=== PATIENT | female | born 1970 ===

== ENCOUNTER 2020-07-11 08:37 | Observation (INO) ==
[2020-07-11] MEDS ORDERED: ASPIRIN 325 MG TABLET PO STA (09:28)
[2020-07-11] MEDS ORDERED: NITROGLYCERIN SL 0.4 MG TABLET SL PRN (09:28)
[2020-07-11 09:38] LABS: Basophils # 0.1 10*3/uL (0.0-0.2); Basophils % 1.3 % (0.0-0.8); Eosinophils # 0.1 10*3/uL (0.0-0.87); Eosinophils % 3.7 % (0.00-10.9); Hematocrit 36.8 VOL% (35.7-47.0); Hemoglobin 11.1 GM/DL (12.0-16.0); Immature Granulocytes % 0.3 %; Immature Granulocytes Absolute 0.01 #; Lymphocytes # 1.3 10*3/uL (1.4-4.0); Lymphocytes % 34.2 % (21.3-54.2); Mean Corpuscular HGB Conc 30.2 GM/DL (32-36); Mean Corpuscular Volume 65.9 FL (87-102); Monocytes % 6.1 % (1.7-12.7); Neutrophils % 54.4 % (38.7-73.9); Platelet Count 352 T/CUMM (130-400); Red Blood Count 5.58 MC/CUMM (3.8-5.5); Red Cell Distribution Width 19.1 % (9.3-17.3); White Blood Count 3.8 T/CUMM (4-12)
[2020-07-11 09:45] LABS: PT Patient Result 10.7 SECS (9.8-11.9); Partial Thromboplastin Time 30.1 SECS (23.9-33.8)
[2020-07-11 09:48] LABS: Calcium 9.8 MG/DL (8.5-10.1); Osmolality,Calculated 283.1 MOS/KG (273-304); Potassium 3.9 MMOL/L (3.5-5.1)
[2020-07-11] MEDS ORDERED: hydrALAZINE 20 MG/1 ML VIAL IV STA (10:46)
[2020-07-11] MEDS ORDERED: ENOXAPARIN 120 MG/0.8 ML SYRINGE SUBCUT STA (10:47)
[2020-07-11] MEDS ORDERED: LABETALOL 20 MG/4 ML SYRINGE IV PRN (11:31)
[2020-07-11] MEDS ORDERED: DEXTROSE 50% 25 GM/50 ML VIAL IV PRN (11:36)
[2020-07-11] MEDS ORDERED: GLUCAGON 1 MG VIAL IM PRN (11:36)
[2020-07-11] MEDS ORDERED: ONDANSETRON 4 MG/2 ML VIAL IV PRN (11:36)
[2020-07-11] MEDS ORDERED: ACETAMINOPHEN 325 MG TABLET PO PRN (11:36)
[2020-07-11 12:06] LABS: Risk Ratio 2.92; Thyroid Stimulating Hormone 2.25 uIU/ml (0.358-3.74); VLDL CHOLESTEROL 16.2 MG/DL
[2020-07-11] MEDS: ENOXAPARIN 40 MG/0.4 ML SYRINGE SUBCUT SCH (14:18)
[2020-07-11] MEDS: lisinopriL 10 MG TABLET PO SCH (15:40)
[2020-07-11] MEDS: amLODIPine 5 MG TABLET PO SCH (15:40)
[2020-07-11] MEDS ORDERED: ZALEPLON 5 MG CAPSULE PO PRN (20:51)
[2020-07-11] MEDS: FERROUS SULFATE 325 MG TABLET PO SCH ×2 (20:58→21:48)
[2020-07-11] MEDS: METOPROLOL TARTRATE 25 MG TABLET PO SCH (21:48)
[2020-07-12 05:51] LABS: Basophils % 0.7 % (0.0-0.8); Eosinophils # 0.1 10*3/uL (0.0-0.87); Eosinophils % 3.3 % (0.00-10.9); Hematocrit 33.2 VOL% (35.7-47.0); Immature Granulocytes % 0.2 %; Immature Granulocytes Absolute 0.01 #; Lymphocytes # 1.4 10*3/uL (1.4-4.0); Lymphocytes % 32.4 % (21.3-54.2); Mean Corpuscular HGB Conc 30.1 GM/DL (32-36); Mean Corpuscular Volume 65.9 FL (87-102); Neutrophils % 56.4 % (38.7-73.9); Platelet Count 321 T/CUMM (130-400); Red Blood Count 5.04 MC/CUMM (3.8-5.5); White Blood Count 4.3 T/CUMM (4-12)
[2020-07-12 06:04] LABS: Calcium 9.2 MG/DL (8.5-10.1); Osmolality,Calculated 285.8 MOS/KG (273-304); Potassium 3.6 MMOL/L (3.5-5.1)
[2020-07-12 06:10] LABS: Hypochromasia 2+
[2020-07-12 06:11] LABS: Microcytosis 1+; Ovalocytes Few; Platelet Estimate Normal; Target Cells Few
[2020-07-12] MEDS ORDERED: ASPIRIN CHEW 81 MG TABLET PO SCH (09:00)
[2020-07-12] MEDS ORDERED: CITALOPRAM 40 MG TABLET PO SCH (09:00)
[2020-07-12] MEDS ORDERED: PANTOPRAZOLE 40 MG TABLET PO SCH (09:00)
[2020-07-12] MEDS ORDERED: carvediloL 6.25 MG TABLET PO SCH (10:30)
[2020-07-12 12:32] VITALS: BP 180/93
[2020-07-12] MEDS: lisinopriL 10 MG TABLET PO SCH (13:04)
[2020-07-12] MEDS: amLODIPine 5 MG TABLET PO SCH (13:06)
[2020-07-12] MEDS: FERROUS SULFATE 325 MG TABLET PO SCH (13:06)
[2020-07-12] MEDS: ENOXAPARIN 40 MG/0.4 ML SYRINGE SUBCUT SCH (13:06)
[2020-07-12] MEDS: METOPROLOL TARTRATE 25 MG TABLET PO SCH (13:32)
== END 2020-07-12 14:39 | disposition home or self-care (01) ==
LOC: N.ED 08:37 → N.EDINP 08:37 → N.TELEN 19:52
PROVIDERS: ADMIT Internal Medicine; ATTEND Internal Medicine